=== PATIENT | male | born 1965 | race Caucasian/White ===

== ENCOUNTER 2018-08-22 08:45 | Emergency (ER) | payer SELFPAY ==
[2018-08-22 08:56] VITALS: BP 151/99
[2018-08-22] MEDS ORDERED: METF-450 PO (08:56)
[2018-08-22] MEDS ORDERED: AMLO-127 PO (08:56)
--- NOTE | 2018-08-22 09:00 | ER Report ---
History and Physical Time Seen By MD: 09:00 HPI/ROS CHIEF COMPLAINT: Left calf swelling and pain HISTORY OF PRESENT ILLNESS: 53-year-old male comes emergency Department today with complaints of left calf pain and tenderness was seen yesterday in outpatient environment had an elevated d-dimer but no ultrasound was given a shot of Lovenox and told to come to the ER here for a DVT rule out ultrasound. Patient describes multiple episodes of cramping in either the right or the left calf this is been going on for several months comes and goes happens when he is better laying flat. Patient states that about 2 days ago he had a severe cramp in his left calf and subsequently since has been having pain and tenderness to the calf itself. Patient denies any trauma to the calf or additional complaints noted. Pain is localized to the posterior calf mid area REVIEW OF SYSTEMS: Respiratory: No cough, no dyspnea. Cardiovascular: No chest pain, no palpitations. Gastrointestinal: No vomiting, no abdominal pain. Musculoskeletal: Left calf pain Remainder of the 14 system rev: Yes Allergies: Coded Allergies: mushroom (Verified Allergy, Severe, ANAPHYLAXIS, 08/22/18) Home Meds Reported Medications Insulin Glargine (LANTUS) 100 Unit/Ml Soln, 16 UNIT SUBQ HS, ML 08/22/18 Metformin Hcl (METFORMIN HCL) 500 Mg Tablet, 1 TAB PO BID, TAB 08/22/18 Amlodipine Besylate (AMLODIPINE BESYLATE) 10 Mg Tablet, 0.5 TAB PO QDAY, TAB 08/22/18 Reviewed Nurses Notes: Yes Old Medical Records Reviewed: Yes Constitutional Vital Sign - Last 24 Hours 08/22/18 08:56 Temp 97.9 Pulse 95 Resp 14 B/P (MAP) 151/99 Pulse Ox 92 O2 Delivery Room Air Physical Exam General appearance: Alert no distress. Respiratory: Chest is non tender, lungs are clear to auscultation. Cardiac: Regular rate and rhythm [ ] Left lower extremity examination patient has tenderness to palpation of the left calf throughout its entirety neurovascularly intact asymmetric measurement pending not rock hard her overtly firm not consistent with compartment syndrome but definitely firm to the touch. No additional findings noted DIFFERENTIAL DIAGNOSIS: After history and physical exam differential diagnosis was considered for DVT left lower extremity Medical Decision Making ED Course/Re-evaluation ED Course ED course patient here with left calf pain swelling and tenderness consistent with a possible DVT ultrasound does not demonstrate a DVT patient will follow-up with orthopedics Decision to Disposition Date: Aug 22, 2018 Decision to Disposition Time: 10:27 Depart Departure Latest Vital Signs Vital Signs Date Time Temp Pulse Resp B/P (MAP) Pulse Ox O2 Delivery O2 Flow Rate FiO2 08/22/18 08:56 97.9 95 14 151/99 92 Room Air Impression: Primary Impression: Calf pain Condition: Condition Unchanged Disposition: HOME OR SELF-CARE Referrals: FALGUNI CRANDALL MD 5 Days Patient Instructions: Leg Cramps (ED) ENOCH CLARKE MD Aug 22, 2018 09:00
[2018-08-22] MEDS ORDERED: LANI SUBQ (09:02)
--- NOTE | 2018-08-22 10:45 | RADIOLOGY IMAGING REPORT ---
FACILITY: [facility] PATIENT NAME: Valeria Frank : 1965 MR: [id number] V: [id number] EXAM DATE: ORDERING PHYSICIAN: ENOCH CLARKE TECHNOLOGIST: Location: [facility] [place] Patient: Valeria Frank : 1965 Visit/Account:[id number] Date of Sevice: 08/22/2018 Left lower extremity venous Doppler duplex ultrasound scan. HISTORY: Left posterior calf pain. COMPARISON: None. A color flow Doppler duplex ultrasound examination with spectral analysis was performed on the lower extremity. The common femoral vein, superficial femoral vein, and popliteal vein are normal. These ve ssels compress and augment normally. The upper portions of the trifurcation veins are unremarkable. P ortions of the deep veins of the calf are obscured. No intraluminal filling defects are identified to suggest acute thrombus in the deep venous system. No abnormal fluid collections. A venous reflux study was not performed at this time. Note that Doppler ultrasound is somewhat insensitive below the knee. IMPRESSION: Negative for acute deep vein thrombosis. Report Dictated By: Rupert Byers MD at 08/22/2018 10:37 AM Report E-Signed By: Rupert Byers MD at 08/22/2018 10:38 AM WSN:[id number]
== END 2018-08-22 10:41 | disposition home or self-care (01) ==
LOC: ER 08:49
DX: M79.662 Pain in left lower leg (principal)
CPT/HCPCS: 99283